=== PATIENT | male | born 1945 | race Caucasian/White ===

== ENCOUNTER 2017-03-02 11:39 | Emergency (ER) | payer MEDICARE ==
[~2017-03-02] VITALS: Ht 177.8 cm; Wt 140.2 kg
[~2017-03-02 11:39] MED LIST: ASPI325T PO; CYCL-36 PO; LORTA5 PO; LOTR5CAP3 PO; NAPR500 PO; PRAV40TA2 PO
[2017-03-02 11:48] VITALS: BP 133/74; PULSE 91; RESP 18; TEMP 97.5; O2SAT 97
--- NOTE | 2017-03-02 13:04 | RADRPT ---
EXAM DATE/TIME: 03/02/2017 12:21 [facility] COMPARISON: No previous studies available for comparison. INDICATIONS : Fell, has pain left upper chest, shoulder area MEDICAL HISTORY : None. SURGICAL HISTORY : None. ENCOUNTER: Initial ACUITY: 1 day PAIN SCORE: 10/10 LOCATION: Left Left upper rib FINDINGS: Multiple views of the left ribs were performed. There is no evidence of displaced fracture. No dest ructive lesions or areas of periosteal thickening are seen. Expiratory view of the chest is negative for pneumothorax. The mediastinal structures are midline. The left humeral head is inferiorly anteriorly dislocated CONCLUSION: Unremarakble examination of the left ribs and chest except for left sided glenohumeral dislocation. Ty Perrin MD on March 02, 2017 at 13:00 Board Certified Radiologist. This report was verified electronically.
--- NOTE | 2017-03-02 13:05 | RADRPT ---
EXAM DATE/TIME: 03/02/2017 12:34 [facility] COMPARISON: No previous studies available for comparison. INDICATIONS : Fell, has left shoulder pain with limited ROM MEDICAL HISTORY : None. SURGICAL HISTORY : None. ENCOUNTER: Initial ACUITY: 1 day PAIN SCORE: 10/10 LOCATION: Left shoulder FINDINGS: Two view examination of the left shoulder demonstrates anterior-inferior dislocation of the humeral h ead. Bony mineralization is normal. CONCLUSION: Dislocation of the left humeral head anteriorly inferiorly. Ty Perrin MD on March 02, 2017 at 13:02 Board Certified Radiologist. This report was verified electronically.
--- NOTE | 2017-03-02 13:06 | RADRPT ---
EXAM DATE/TIME: 03/02/2017 12:40 [facility] COMPARISON: No previous studies available for comparison. INDICATIONS : Fell, hit nose MEDICAL HISTORY : None. SURGICAL HISTORY : None. ENCOUNTER: Initial ACUITY: 1 day PAIN SCORE: 10/10 LOCATION: Bilateral nasal pain FINDINGS: Lateral and Hamilton views of the nasal bones demonstrate no evidence of fracture. There is no signifi cant soft tissue swelling. The infraorbital rims are intact. CONCLUSION: Unremarkable examination of the nasal bones. Ty Perrin MD on March 02, 2017 at 13:03 Board Certified Radiologist. This report was verified electronically.
[2017-03-02] MEDS ORDERED: XARE20TA PO (13:32)
[2017-03-02] MEDS ORDERED: AMLO5CAP3 PO (13:32)
[2017-03-02] MEDS ORDERED: VITA10002 PO (13:32)
[2017-03-02] MEDS ORDERED: MONT10TA2 PO (13:32)
[2017-03-02] MEDS ORDERED: VITA1000 PO (13:32)
[2017-03-02] MEDS ORDERED: ETOMIDATE 20 MG/10 ML VIAL IV PUSH ONE (13:45)
[2017-03-02] MEDS ORDERED: ONDANSETRON HCL 4 MG/2 ML VIAL IV PUSH ONE (13:45)
[2017-03-02] MEDS ORDERED: HYDROmorphone HCL PF 2 MG/ML VIAL IV PUSH ONE (13:45)
--- NOTE | 2017-03-02 13:49 | PD ---
HPI Chief Complaint: Musculoskeletal Complaint Time Seen by Provider: 13:40 Travel History International Travel<30 days: No Contact w/Intl Traveler<30days: No Traveled to known affect area: No History of Present Illness HPI 71-year-old male patient with history of multiple medical issues, currently on Xarelto for A. fib, presents to the ER today because he tripped on a curb yesterday and fell onto his left shoulder, is having left shoulder pains. He also hit his nose but denies any loss of consciousness. He denies any other issues or injuries. Pain and left shoulder is currently rated a 10 out of 10 and worse with movements. Neck Modifying Factors: None Associated Signs & Symptoms: Left shoulder injury, fall, nasal injury Risk Factors: On Xarelto [facility] Past Medical History Atrial Fibrillation: Yes High Cholesterol: Yes Diminished Hearing: No Hypertension: Yes Immunizations Current: Yes Influenza Vaccination: Yes ?: Not Past Surgical History Other Surgery: Yes (STENT) Social History Alcohol Use: Yes (3-6 DRINKS OF [place]) Tobacco Use: Yes (2-3 CIGARS A DAY) Substance Use: No Allergies-Medications (Allergen,Severity, Reaction): Coded Allergies: No Known Allergies (Unverified Adverse Reaction, Unknown, 03/02/17) Reported Meds & Prescriptions Reported Meds & Active Scripts Active Reported Vitamin B-12 (Cyanocobalamin) 1,000 Mcg Tab 1,000 Mcg PO DAILY Vitamin D-1000 (Cholecalciferol) 1,000 Unit Tab 1,000 Units PO DAILY Singulair (Montelukast Sodium) 10 Mg Tab 10 Mg PO HS Xarelto (Rivaroxaban) 20 Mg Tab 20 Mg PO DAILY Amlodipine-Benazepril 5-20 Mg Cap 1 Cap PO DAILY Review of Systems Except as stated in HPI: all other systems reviewed are Neg Physical Exam Narrative GENERAL: Well-developed elderly white male patient currently in mild distress. Awake and oriented 3. SKIN: Focused skin assessment warm/dry. HEAD: Atraumatic. Normocephalic. There is notable abrasion over the nasal bridge area, mildly tender palpation without underlying deformities. EYES: Pupils equal and round. No scleral icterus. No injection or drainage. ENT: No nasal bleeding or discharge. Mucous membranes pink and moist. NECK: Trachea midline. No JVD. CARDIOVASCULAR: Regular rate and rhythm. No murmur appreciated. RESPIRATORY: No accessory muscle use. Clear to auscultation. Breath sounds equal bilaterally. GASTROINTESTINAL: Abdomen soft, non-tender, nondistended. Hepatic and splenic margins not palpable. MUSCULOSKELETAL: No obvious deformities. No clubbing. No cyanosis. No edema. Left shoulder: Decreased range of motion secondary to pain, decreased roundness and patient is unable to externally and internally rotate. Neurovascularly intact. NEUROLOGICAL: Awake and alert. No obvious cranial nerve deficits. Motor grossly within normal limits. Normal speech. PSYCHIATRIC: Appropriate mood and affect; insight and judgment normal. Data Data Last Documented VS Vital Signs Date Time Temp Pulse Resp B/P (MAP) Pulse Ox O2 Delivery O2 Flow Rate FiO2 03/02/17 14:45 97 4.00 03/02/17 14:16 18 03/02/17 11:48 97.5 91 133/74 (93) Orders Orders Ribs, Uni (W/Exp Cxr-Min 3vw) (03/02/17 ) Nasal Bones (Min 3 Vws) (03/02/17 ) Shoulder, Limited(2vws) (03/02/17 ) Hydromorphone Pf Inj (Dilaudid Pf Inj) (03/02/17 13:45) Ondansetron Inj (Zofran Inj) (03/02/17 13:45) Ct Brain W/O Iv Contrast(Rout) (03/02/17 13:40) Etomidate Inj (Amidate Inj) (03/02/17 13:45) Shoulder, Limited(2vws) (03/02/17 14:38) MDM Medical Decision Making Medical Screen Exam Complete: Yes Emergency Medical Condition: Yes Medical Record Reviewed: Yes Interpretation(s) Last [address] 03/02/17 1340 Signed Impressions: Service Date/Time: Thursday, March 02, 2017 14:01 - CONCLUSION: Normal examination. Ty Perrin MD Shoulder X-Ray 03/02/17 0000 Signed Impressions: Service Date/Time: Thursday, March 02, 2017 12:34 - CONCLUSION: Dislocation of the left humeral head anteriorly inferiorly. Ty Perrin MD Ribs X-Ray 03/02/17 0000 Signed Impressions: Service Date/Time: Thursday, March 02, 2017 12:21 - CONCLUSION: Unremarakble examination of the left ribs and chest except for left sided glenohumeral dislocation. Ty Perrin MD Nasal Bones X-Ray 03/02/17 0000 Signed Impressions: Service Date/Time: Thursday, March 02, 2017 12:40 - CONCLUSION: Unremarkable examination of the nasal bones. Ty Perrin MD Differential Diagnosis Left shoulder injury, facial injury: Rule out intracranial injuries versus fractures versus dislocations Narrative Course X-rays and CAT scans did not show any signs of facial or intracranial injuries. His x-rays did show a left shoulder dislocation. Conscious sedation and reduction of the shoulder was done in the ER with good reduction. Patient is observed until completely awake and is placed in a sling and released with follow-up to orthopedics and primary care doctor. Return for any worsening in pain or new symptoms as needed. The plan has been discussed with him and he states understanding. Procedures Procedure Narrative After the risks and benefits were discussed the following procedure was performed: MODERATE SEDATION: The patient was placed on a sales merchandise associate and pulse oximetry. An ambu bag and suction was immediately available at bedside. The patient was monitored by the nurse. Oxygen saturation, heart rate and blood pressure were monitored. Procedural sedation was acheived using 10 mg of etomidate. The patient was observed until awake and alert. Procedural Sedation time in attendance was 10 minutes. Left shoulder reduction was done via traction countertraction method, x-rays were done afterward showing reduction, patient tolerated procedure well. Diagnosis Primary Impression: Shoulder dislocation Additional Impression: Facial contusion Med/Other Pt SpecificInfo: Prescription(s) given Scripts Tramadol (Tramadol) 50 Mg Tab 50 MG PO Q6H Y for PAIN, #15 TAB 0 Refills Prov: Harshil Andrews MD 03/02/17 Disposition: 01 DISCHARGE HOME Condition: Stable Harshil Andrews MD Mar 02, 2017 13:49
[2017-03-02 14:16] VITALS: RESP 18
--- NOTE | 2017-03-02 14:17 | RADRPT ---
EXAM DATE/TIME: 03/02/2017 14:01 [facility] COMPARISON: No previous studies available for comparison. INDICATIONS : Fall. Left sided pain. RADIATION DOSE: 57.34 CTDIvol (mGy) MEDICAL HISTORY : Hypercholesterolemia. Hypertension. SURGICAL HISTORY : Orthopedic surgery. ENCOUNTER: Initial ACUITY: 1 day PAIN SCALE: 5/10 LOCATION: Left cranial TECHNIQUE: Multiple contiguous axial images were obtained of the head. Using automated exposure control and adj ustment of the mA and/or kV according to patient size, radiation dose was kept as low as reasonably a chievable to obtain optimal diagnostic quality images. DICOM format image data is available electro nically for review and comparison. FINDINGS: CEREBRUM: The ventricles are normal for age. No evidence of midline shift, mass lesion, hemorrhage or acute in farction. No extra-axial fluid collections are seen. POSTERIOR FOSSA: The cerebellum and brainstem are intact. The 4th ventricle is midline. The cerebellopontine angle i s unremarkable. EXTRACRANIAL: The visualized portion of the orbits is intact. SKULL: The calvaria is intact. No evidence of skull fracture. Significant falcine calcifications anteriorly CONCLUSION: Normal examination. Ty Perrin MD on March 02, 2017 at 14:15 Board Certified Radiologist. This report was verified electronically.
[2017-03-02 14:45] VITALS: O2SAT 95; O2SAT 97
--- NOTE | 2017-03-02 15:00 | RADRPT ---
EXAM DATE/TIME: 03/02/2017 14:48 [facility] COMPARISON: SHOULDER LEFT LTD (2VWS), March 02, 2017, 12:34. INDICATIONS : Post reduction left shoulder MEDICAL HISTORY : None. SURGICAL HISTORY : None. ENCOUNTER: Subsequent ACUITY: 1 day PAIN SCORE: 0/10 LOCATION: Left shoulder FINDINGS: Two view examination of the left shoulder demonstrates no evidence of fracture or dislocation. The hu meral head is now in normal position The glenohumeral and acromioclavicular joints are maintained. Bony mineralization is normal. CONCLUSION: Unremarkable limited examination of the left shoulder. Ty Perrin MD on March 02, 2017 at 14:58 Board Certified Radiologist. This report was verified electronically.
[2017-03-02] MEDS ORDERED: TRAM50TA PO (15:06)
[2017-03-02 15:15] VITALS: BP 160/85
== END 2017-03-02 15:44 | disposition home or self-care (01) ==
LOC: PHED 11:39
DX: S43.005A Unspecified dislocation of left shoulder joint, initial encounter (principal); S00.83XA Contusion of other part of head, initial encounter; I48.91 Unspecified atrial fibrillation; F17.290 Nicotine dependence, other tobacco product, uncomplicated; W01.0XXA Fall on same level from slipping, tripping and stumbling without subsequent striking against object, initial encounter; Z79.01 Long term (current) use of anticoagulants
CPT/HCPCS: 23650; 70160; 70450; 71101; 73030; 94770; 96374; 96375; 99285; J1170; J2405